=== PATIENT | female | born 1945 | race Two or more races ===

== ENCOUNTER 2020-09-18 10:18 | Outpatient (CLI) | payer OTHER | END 2020-09-18 15:00 | disposition home or self-care (01) | LOC: LAB 10:18 | PROVIDERS: ATTEND Obstetrics & Gynecology Gynecologic Oncology | DX: Z20.828 Contact with and (suspected) exposure to other viral communicable diseases (principal); C54.1 Malignant neoplasm of endometrium; R79.1 Abnormal coagulation profile; R97.1 Elevated cancer antigen 125 [CA 125]; D64.89 Other specified anemias; N39.0 Urinary tract infection, site not specified; Z01.812 Encounter for preprocedural laboratory examination ==

== ENCOUNTER 2020-09-22 08:00 | Inpatient (IN) | payer OTHER ==
[~2020-09-22] VITALS: Ht 149.9 cm; Wt 71.2 kg
[2020-09-22] MEDS ORDERED: SYNTHROID137 MCG PO (10:51)
[2020-09-22] MEDS ORDERED: MAXIMUM D3325 MCG PO (10:52)
[2020-09-22] MEDS ORDERED: NEURIN PO (10:52)
[2020-10-03] MEDS ORDERED: GABAPENTIN600 MG (08:57)
== END 2020-10-03 08:00 | disposition home or self-care (01) | DRG 741 ==
LOC: SURH 09-25 08:00 → CIR.AMB 10-02 07:00 → O/R 10-02 07:00 → OB/GYN 10-02 07:48 → SURH 10-02 07:48 → O/R 10-02 07:48 → EDSTATUS 10-02 08:00 → SURH 10-02 08:00 → O/R 10-02 15:05 → OB/GYN 10-02 15:05 → O/R 10-03 08:00 → CIR.AMB 10-03 08:00 → OB/GYN 10-03 13:29
PROVIDERS: ADMIT Obstetrics & Gynecology Gynecologic Oncology; ATTEND Obstetrics & Gynecology Gynecologic Oncology
PROC: 0UT24ZZ Resection of Bilateral Ovaries, Percutaneous Endoscopic Approach (ICD-10-PCS; 2020-10-02)
PROC: 0UT74ZZ Resection of Bilateral Fallopian Tubes, Percutaneous Endoscopic Approach (ICD-10-PCS; 2020-10-02)
PROC: 07BC4ZZ Excision of Pelvis Lymphatic, Percutaneous Endoscopic Approach (ICD-10-PCS; 2020-10-02)
PROC: 0UT94ZZ Resection of Uterus, Percutaneous Endoscopic Approach (ICD-10-PCS; principal; 2020-10-02 07:00)
DX: C54.1 Malignant neoplasm of endometrium (principal); D36.0 Benign neoplasm of lymph nodes; D28.2 Benign neoplasm of uterine tubes and ligaments; D25.2 Subserosal leiomyoma of uterus